=== PATIENT | female | born 1940 | race Caucasian/White ===

== ENCOUNTER 2017-01-02 07:27 | Inpatient (IN) | payer MEDICARE ==
[2017-01-02] MEDS ORDERED: Lidocaine 2% Inj (20ml) ONE ×2 (09:20→10:06)
[2017-01-02] MEDS ORDERED: Midazolam 2 MG/2 ML VIAL ONE (09:29)
[2017-01-02] MEDS ORDERED: Metoprolol 1 mg/ml Inj IVP ONE (09:43)
[2017-01-02] MEDS ORDERED: Propofol 10 mg/ml Inj (20 ML) ONE (10:06)
--- NOTE | 2017-01-02 10:17 | CP.SDSHP ---
Same Day Surgery H & P - History Proposed Procedure: Left percutaneous nephrostomy tube placement Pre-Op Diagnosis: Left renal calculi - Allergies Allergies: Allergies No Known Allergies Allergy (Verified 12/26/16 08:57) - Physical Exam Vital Signs: Vital Signs 01/02/17 07:47 Temperature 97.4 F L Pulse Rate 69 Respiratory 20 Rate Blood Pressure 143/76 O2 Sat by Pulse 96 Oximetry Mental Status: Alert & Oriented x3 Neuro: WNL Heart: WNL Lungs: WNL - Impression Impression: Pt with staghorn calculus left kidney with plan OR lithotripsy. Plan percutaneous nephrostomy tube placement. Informed consent obtained. Pt. Evaluated Today:Candidate for Anesthesia & Procedure: Yes (ASA 2 Malampati 3) - Date & Time Date: 01/02/17 Time: 09:15 Short Stay Discharge - Short Stay Discharge Admitting Diagnosis/Reason for Visit: RENAL CALCULI Disposition: HOME/ ROUTINE
--- NOTE | 2017-01-02 10:20 | PCM.SURG1 ---
Surgeon's Initial Post Op Note - Surgeon's Notes Surgeon: Jose Eduardo Cabezas MD Mop Machine Operator: None Type of Anesthesia: IV Sedation Pre-Operative Diagnosis: Left renal calculus Operative Findings: XRAY image showed lower pole and renal pelvis stone. Ureteral stent in place. Post-Operative Diagnosis: Left renal calculi Operation Performed: Left perc. nephrostomy tube placement. Specimen/Specimens Removed: none Estimated Blood Loss: EBL {In ML}: 2 Blood Products Given: N/A Drains Used: No Drains Post-Op Condition: Fair Date of Surgery/Procedure: 01/02/17 Time of Surgery/Procedure: 15:00
[2017-01-02] MEDS ORDERED: Sodium Chloride 0.9% 500 ML IV ONE (11:30)
--- NOTE | 2017-01-02 12:04 | SPECPROC ---
PROCEDURE: < Date of procedure: 01/02/2017 Procedure: 1. Left nephrostogram, CPT 16883 2. Left percutaneous nephrostomy tube placement, CPT 41829 Medications: The patient sedated by the anesthesiologist along with physiologic monitoring, 8 cubic centimeters 1 percent lidocaine. HISTORY: Ureteral obstruction, ureteral calculi TECHNIQUE: Following informed consent and procedure time-out, the patient was placed prone on the interventional table and the skin was marked. The left lower back were prepped and draped in the usual sterile fashion. Ultrasound showed a small stone in the lower pole left kidney. A ureteral stent is in place. After the patient was sedated by the anesthesiologist and the lower back anesthetized with 8 cc 1% lidocaine, a 21 gauge Chiba needle was advanced percutaneously under direct ultrasound guidance into the lower pole and directed towards the stone. The position of needle was confirmed with fluoroscopic image. Dilute contrast injected through the needle outlined the collecting system which is filled with stones. An 018 guidewire was advanced through the needle into the upper collecting system. Needle was exchanged for an Accustick coaxial dilator. The dilator was exchanged over the 035 wire for a 7 Beninese vascular sheath. Through the sheath, a Berenstein catheter was advanced into renal collecting system and a guidewire was advanced into the bladder. Nephrostogram showed no hydronephrosis. There is flow of contrast seen into the urinary bladder. An 8 Beninese nephrostomy tube was advanced over the wire and into the mid ureter. Position of the tube was confirmed with contrast injection. The tube was secured to patient's skin. The nephrostomy tube was attached to drainage bag. IMPRESSION: Significant calculi within the left renal collecting system extending from the lower pole to the renal pelvis. There is no hydronephrosis. A ureteral stent in place. An 8 Beninese nephrostomy tube was was advanced to the mid ureter for planned lithotripsy.
[2017-01-02 12:19] LABS: HEMATOCRIT 42.8 % (34.0-47.0); MEAN CELL VOLUME 88.9 fL (81.0-99.0); MEAN CORPUSCULAR HGB CONC 32.7 g/dL (33.0-37.0); MEAN PLATELET VOLUME 10.2 fL (7.2-11.7); WHITE BLOOD COUNT 8.7 K/uL (4.8-10.8)
[2017-01-02 12:30] LABS: POTASSIUM 4.6 mmol/L (3.6-5.2)
[2017-01-02 12:32] LABS: ALB/GLOB RATIO 1.3 (1.0-2.1); BILIRUBIN,TOTAL 0.5 mg/dL (0.2-1.3); TOTAL PROTEIN 7.6 g/dL (6.3-8.3)
[2017-01-02 12:33] LABS: CALCIUM 9.4 mg/dl (8.6-10.4)
[2017-01-02] MEDS ORDERED: (Novolog) Insulin Aspart, Recombinant 100 u/ml 10 ml vial SC SCH (16:30)
--- NOTE | 2017-01-02 17:47 | CP.PCM.HP ---
History of Present Illness - History of Present Illness History of Present Illness: HPI: 76 year old female h/o kidney stones, s/p left ureteral insertion for OR lithothripsy. Feels maya. C/o mild left flank pains. Present on Admission - Present on Admission Any Indicators Present on Admission: Yes History of DVT/PE: No History of Uncontrolled Diabetes: No Urinary Catheter: No Decubitus Ulcer Present: No Review of Systems - Review of Systems All systems: reviewed and no additional remarkable complaints except (flank pains, no fever, no sob, no chestpain, no loss of weight) Past Patient History - Tetanus Immunizations Tetanus Immunization: Up to Date - Past Medical History & Family History Past Medical History?: Yes - Past Social History Smoking Status: Never Smoked Domestic Violence: Negative - CARDIAC Hx Cardiac Disorders: Yes Hx Hypercholesterolemia: Yes Hx Hypertension: Yes - PULMONARY Hx Respiratory Disorders: No - NEUROLOGICAL Hx Neurological Disorder: No - HEENT Hx HEENT Problems: Yes Hx Cataracts: Yes (bilat iol) - RENAL Hx Chronic Kidney Disease: Yes Hx Kidney Stones: Yes - ENDOCRINE/METABOLIC Hx Endocrine Disorders: Yes Hx Diabetes Mellitus Type 2: Yes - HEMATOLOGICAL/ONCOLOGICAL Hx Blood Disorders: Yes Hx Cancer: Yes (breast 2002) Hx Chemotherapy: Yes (2002) - INTEGUMENTARY Hx Dermatological Problems: No - MUSCULOSKELETAL/RHEUMATOLOGICAL Hx Musculoskeletal Disorders: Yes Hx Falls: No Hx Osteoarthritis: Yes (knees) - GASTROINTESTINAL Hx Gastrointestinal Disorders: Yes Hx Diverticulitis: Yes (diverticuli) Hx Gall Bladder Disease: Yes - GENITOURINARY/GYNECOLOGICAL Hx Genitourinary Disorders: Yes Hx Hematuria: Yes - PSYCHIATRIC Hx Psychophysiologic Disorder: No - SURGICAL HISTORY Hx Surgeries: Yes Hx Cataract Extraction: Yes Hx Cholecystectomy: Yes Hx Mastectomy: Yes (left) Other/Comment: Nephrostomy 01/02/17 - ANESTHESIA Hx Anesthesia: Yes Hx Anesthesia Reactions: No Hx Malignant Hyperthermia: No Has any member of the family had a problem w/ anesthesia?: No Meds Allergies/Adverse Reactions: Allergies Allergy/AdvReac Type Severity Reaction Status Date / Time No Known Allergies Allergy Verified 12/26/16 08:57 Physical Exam - Head Exam Head Exam: NORMAL INSPECTION - Eye Exam Eye Exam: Normal appearance - ENT Exam ENT Exam: Normal Exam - Neck Exam Neck exam: Positive for: Normal Inspection - Respiratory Exam Respiratory Exam: NORMAL BREATHING PATTERN - Cardiovascular Exam Cardiovascular Exam: REGULAR RHYTHM - GI/Abdominal Exam GI & Abdominal Exam: Soft (left nephrostomy tube noted) - Rectal Exam Rectal Exam: Deferred - Extremities Exam Extremities exam: Positive for: normal inspection - Back Exam Back exam: NORMAL INSPECTION - Neurological Exam Neurological exam: Alert - Psychiatric Exam Psychiatric exam: Normal Affect - Skin Skin Exam: Warm Results - Vital Signs Recent Vital Signs: Last Vital Signs Temp 98.2 F 01/02/17 15:20 Pulse 62 01/02/17 15:20 Resp 18 01/02/17 15:20 BP 126/51 L 01/02/17 15:20 Pulse Ox 97 01/02/17 15:20 - Labs Result Diagrams: 01/02/17 12:15 01/02/17 12:15 Labs: Laboratory Results - last 24 hr 01/02/17 01/02/17 01/02/17 08:04 12:08 12:15 WBC 8.7 RBC 4.81 Hgb 14.0 Hct 42.8 MCV 88.9 MCH 29.0 MCHC 32.7 L RDW 14.0 Plt Count 224 MPV 10.2 Sodium Potassium Chloride Carbon Dioxide Anion Gap BUN Creatinine Est GFR ( Amer) Est GFR (Non-Af Amer) POC Glucose (mg/dL) 162 H 156 H Random Glucose Calcium Total Bilirubin AST ALT Alkaline Phosphatase Total Protein Albumin Globulin Albumin/Globulin Ratio 01/02/17 01/02/17 12:15 16:44 WBC RBC Hgb Hct MCV MCH MCHC RDW Plt Count MPV Sodium 141 Potassium 4.6 Chloride 106 Carbon Dioxide 21 L Anion Gap 19 BUN 25 H Creatinine 1.2 Est GFR ( Amer) 53 Est GFR (Non-Af Amer) 44 POC Glucose (mg/dL) 142 H Random Glucose 143 H Calcium 9.4 Total Bilirubin 0.5 AST 37 H ALT 45 Alkaline Phosphatase 56 Total Protein 7.6 Albumin 4.3 Globulin 3.3 Albumin/Globulin Ratio 1.3 Assessment & Plan (1) Kidney stone on left side Status: Acute Priority: High (2) Diabetes Status: Chronic Priority: Medium - Assessment and Plan (Free Text) Assessment: For lithotripsy. IV antibiotic, SC insuline Cleared for OR lithotripsy
[2017-01-02] MEDS ORDERED: Gentamicin 160 MG in Sodium Chloride 0.9% 100 ML IVPB ONE (18:00)
[2017-01-02] MEDS: (Novolog) Insulin Aspart, Recombinant 100 u/ml 10 ml vial SC SCH (23:38)
[2017-01-03] MEDS ORDERED: Bupivacaine 0.5% Inj(30mL) ONE (07:42)
[2017-01-03] MEDS ORDERED: cefTRIAXone IV 1 gm in Dextros 50 ML IVPB ONE (07:42)
[2017-01-03] MEDS ORDERED: Iodixanol 320 MG/ML 200 ML BOTTLE IV ONE (07:42)
[2017-01-03] MEDS: (Novolog) Insulin Aspart, Recombinant 100 u/ml 10 ml vial SC SCH ×4 (07:47→21:41)
[2017-01-03] MEDS ORDERED: Gentamicin 80 mg in 0.9% NS 0 MG/0 ML BAG IVPB ONE (07:58)
[2017-01-03] MEDS ORDERED: Lactated Ringer's 1,000 ML IV ONE ×2 (08:20→09:30)
[2017-01-03] MEDS ORDERED: Propofol 10 mg/ml Inj (20 ML) ONE (08:22)
[2017-01-03] MEDS ORDERED: Midazolam 2 MG/2 ML VIAL ONE (08:22)
[2017-01-03] MEDS ORDERED: Neostigmine Methylsulfate 3mg/3ml Syringe IV ONE (09:46)
[2017-01-03] MEDS ORDERED: Home Med 1 UNIT (Empagliflozin [Jardiance] 25 MG) PO SCH (10:00)
--- NOTE | 2017-01-03 10:12 | CP.PCM.CON ---
History of Present Illness - History of Present Illness History of Present Illness: FULL NOTE TO BE DICTATED Past Patient History - Tetanus Immunizations Tetanus Immunization: Up to Date - Past Medical History & Family History Past Medical History?: Yes - Past Social History Smoking Status: Never Smoked Domestic Violence: Negative - CARDIAC Hx Cardiac Disorders: Yes Hx Hypercholesterolemia: Yes Hx Hypertension: Yes - PULMONARY Hx Respiratory Disorders: No - NEUROLOGICAL Hx Neurological Disorder: No - HEENT Hx HEENT Problems: Yes Hx Cataracts: Yes (bilat iol) - RENAL Hx Chronic Kidney Disease: Yes Hx Kidney Stones: Yes - ENDOCRINE/METABOLIC Hx Endocrine Disorders: Yes Hx Diabetes Mellitus Type 2: Yes - HEMATOLOGICAL/ONCOLOGICAL Hx Blood Disorders: Yes Hx Cancer: Yes (breast 2002) Hx Chemotherapy: Yes (2002) - INTEGUMENTARY Hx Dermatological Problems: No - MUSCULOSKELETAL/RHEUMATOLOGICAL Hx Musculoskeletal Disorders: Yes Hx Falls: No Hx Osteoarthritis: Yes (knees) - GASTROINTESTINAL Hx Gastrointestinal Disorders: Yes Hx Diverticulitis: Yes (diverticuli) Hx Gall Bladder Disease: Yes - GENITOURINARY/GYNECOLOGICAL Hx Genitourinary Disorders: Yes Hx Hematuria: Yes - PSYCHIATRIC Hx Psychophysiologic Disorder: No - SURGICAL HISTORY Hx Surgeries: Yes Hx Cataract Extraction: Yes Hx Cholecystectomy: Yes Hx Mastectomy: Yes (left) Other/Comment: Nephrostomy 01/02/17 - ANESTHESIA Hx Anesthesia: Yes Hx Anesthesia Reactions: No Hx Malignant Hyperthermia: No Has any member of the family had a problem w/ anesthesia?: No Meds Allergies/Adverse Reactions: Allergies Allergy/AdvReac Type Severity Reaction Status Date / Time No Known Allergies Allergy Verified 12/26/16 08:57 - Medications Medications: Current Medications Amlodipine Besylate (Norvasc) 5 mg PO DAILY [facility] Last Admin: 01/03/17 09:48 Dose: Not Given Insulin Aspart (Novolog) 0 unit SC [facility] PRN Reason: Protocol Last Admin: 01/03/17 07:47 Dose: Not Given Losartan Potassium (Cozaar) 50 mg PO DAILY [facility] Last Admin: 01/03/17 07:35 Dose: 50 mg Metoprolol Tartrate (Lopressor) 25 mg PO BID [facility] Last Admin: 01/03/17 07:34 Dose: 25 mg Pneumococcal Polyvalent Vaccine (Pneumovax 23 Vaccine) 0.5 ml IM .ONCE ONE Stop: 01/04/17 10:01 Rosuvastatin Calcium (Crestor) 10 mg PO [facility] Last Admin: 01/02/17 22:18 Dose: 10 mg Results - Vital Signs Recent Vital Signs: Last Vital Signs Temp 98.1 F 01/03/17 07:00 Pulse 76 01/03/17 07:00 Resp 20 01/03/17 07:00 BP 121/62 01/03/17 07:34 Pulse Ox 96 01/02/17 23:45 - Labs Result Diagrams: 01/02/17 12:15 01/02/17 12:15 Labs: Laboratory Results - last 24 hr 01/02/17 01/02/17 01/02/17 12:08 12:15 12:15 WBC 8.7 RBC 4.81 Hgb 14.0 Hct 42.8 MCV 88.9 MCH 29.0 MCHC 32.7 L RDW 14.0 Plt Count 224 MPV 10.2 Sodium 141 Potassium 4.6 Chloride 106 Carbon Dioxide 21 L Anion Gap 19 BUN 25 H Creatinine 1.2 Est GFR ( Amer) 53 Est GFR (Non-Af Amer) 44 POC Glucose (mg/dL) 156 H Random Glucose 143 H Calcium 9.4 Total Bilirubin 0.5 AST 37 H ALT 45 Alkaline Phosphatase 56 Total Protein 7.6 Albumin 4.3 Globulin 3.3 Albumin/Globulin Ratio 1.3 Blood Type Antibody Screen 01/02/17 01/02/17 01/02/17 16:44 19:49 21:10 WBC RBC Hgb Hct MCV MCH MCHC RDW Plt Count MPV Sodium Potassium Chloride Carbon Dioxide Anion Gap BUN Creatinine Est GFR ( Amer) Est GFR (Non-Af Amer) POC Glucose (mg/dL) 142 H 229 H Random Glucose Calcium Total Bilirubin AST ALT Alkaline Phosphatase Total Protein Albumin Globulin Albumin/Globulin Ratio Blood Type B POSITIVE Antibody Screen Negative 01/03/17 06:41 WBC RBC Hgb Hct MCV MCH MCHC RDW Plt Count MPV Sodium Potassium Chloride Carbon Dioxide Anion Gap BUN Creatinine Est GFR ( Amer) Est GFR (Non-Af Amer) POC Glucose (mg/dL) 166 H Random Glucose Calcium Total Bilirubin AST ALT Alkaline Phosphatase Total Protein Albumin Globulin Albumin/Globulin Ratio Blood Type Antibody Screen Assessment & Plan - Assessment and Plan (Free Text) Assessment: imp: L renal calculi Hx of uti DM Hypertension Hx of breast ca - Date & Time Date: 01/02/17 Time: 10:30
[2017-01-03] MEDS ORDERED: Oxycodone/Acetaminophen 5/325 mg Tab PO PRN (10:17)
--- NOTE | 2017-01-03 10:17 | PCM.SURG1 ---
Surgeon's Initial Post Op Note - Surgeon's Notes Surgeon: Connor Bhakta Riverboat Captain: none Type of Anesthesia: General Endo Pre-Operative Diagnosis: L renal calculi Operative Findings: same, inflamatory debris in kidney Post-Operative Diagnosis: same Operation Performed: L percutaneous nephrolithotomy. Ultrasonic lithotripsy. Stent removal. Nephrostogram Specimen/Specimens Removed: stones, urine, renal pelvic tissue Estimated Blood Loss: EBL {In ML}: 100 Blood Products Given: N/A Post-Op Condition: Good Date of Surgery/Procedure: 01/03/17 Time of Surgery/Procedure: 10:00
[2017-01-03] MEDS ORDERED: HYDROmorphone 0.5 mg/0.5 ml ISec IVP PRN (10:20)
[2017-01-03] MEDS: Lactated Ringer's 1,000 ML IV SCH ×2 (10:30→22:26)
[2017-01-03 12:45] VITALS: RESP 20
--- NOTE | 2017-01-03 15:21 | RAD ---
PROCEDURE: HISTORY: Study for left percutaneous nephrostomy. History of left renal calculi COMPARISON: TECHNIQUE: Total fluoroscopic time utilized during the procedure: 199 seconds. Total dose 32 point 0 5 mGy cm squared FINDINGS: Submitted images from the current procedure: 9 Please refer to the physician's notes performing the procedure. IMPRESSION: Less than 1 hour fluoroscopic time utilized during performance of the procedure
--- NOTE | 2017-01-03 18:06 | CP.PCM.PN ---
Subjective - Date & Time of Evaluation Date of Evaluation: 01/03/17 Time of Evaluation: 18:03 - Subjective Subjective: S: Feels maya. No fever. S/p lithotripsy, s/p stent removed, s/p left percutaneous nephrlithotomy 01-03-17. Objective - Vital Signs/Intake and Output Vital Signs (last 24 hours): Temp Pulse Resp BP Pulse Ox 98.2 F 87 20 125/57 L 94 L 01/03/17 16:22 01/03/17 16:22 01/03/17 16:22 01/03/17 16:22 01/03/17 16:22 Intake and Output: 01/03/17 01/03/17 06:59 18:59 Intake Total 420 Output Total 765 Balance -345 - Medications Medications: Current Medications Amlodipine Besylate (Norvasc) 5 mg PO DAILY [facility] Last Admin: 01/03/17 09:48 Dose: Not Given Docusate Sodium (Colace) 100 mg PO TID [facility] Ceftriaxone Sodium (Rocephin Iv 1 Gm Duplex) 50 mls @ 100 mls/hr IVPB DAILY [facility] Lactated Ringer's (Lactated Ringer's) 1,000 mls @ 80 mls/hr IV .[id number] [facility] Last Admin: 01/03/17 10:30 Dose: Not Given Insulin Aspart (Novolog) 0 unit SC ACHS [facility] PRN Reason: Protocol Last Admin: 01/03/17 11:45 Dose: 3 unit Losartan Potassium (Cozaar) 50 mg PO DAILY [facility] Last Admin: 01/03/17 07:35 Dose: 50 mg Metoprolol Tartrate (Lopressor) 25 mg PO BID [facility] Last Admin: 01/03/17 07:34 Dose: 25 mg Oxycodone/Acetaminophen (Percocet 5/325 Mg Tab) 1 tab PO Q4H PRN PRN Reason: Pain, moderate (4-7) Stop: 01/06/17 10:18 Pneumococcal Polyvalent Vaccine (Pneumovax 23 Vaccine) 0.5 ml IM .ONCE ONE Stop: 01/04/17 10:01 Rosuvastatin Calcium (Crestor) 10 mg PO HS [facility] Last Admin: 01/02/17 22:18 Dose: 10 mg - Labs Labs: 01/02/17 12:15 01/02/17 12:15 - Constitutional Appears: No Acute Distress - Head Exam Head Exam: NORMOCEPHALIC - Eye Exam Eye Exam: Normal appearance - ENT Exam ENT Exam: Normal Exam - Neck Exam Neck Exam: Normal Inspection - Respiratory Exam Respiratory Exam: NORMAL BREATHING PATTERN - Cardiovascular Exam Cardiovascular Exam: REGULAR RHYTHM - GI/Abdominal Exam GI & Abdominal Exam: Soft - Rectal Exam Rectal Exam: Deferred - Extremities Exam Extremities Exam: Normal Inspection - Back Exam Back Exam: NORMAL INSPECTION (left percutaneous nephrolithotomy tube, dunham catheter tube noted) - Neurological Exam Neurological Exam: Awake Assessment and Plan (1) Kidney stone on left side Assessment & Plan: S/p tithotripsy, s/p stent removal, s/p left percutaneus nephrolithotomy done . Appreciate Dr. Bhakta notes. Continue IV antibiotic and insuline Status: Acute (2) Diabetes Status: Chronic - Assessment and Plan (Free Text) Assessment: Continue insuline
[2017-01-04 08:21] LABS: HEMATOCRIT 39.9 % (34.0-47.0); MEAN CELL VOLUME 88.2 fL (81.0-99.0); MEAN CORPUSCULAR HEMOGLOBIN 29.1 pg (27.0-31.0); RED CELL DISTRIBUTION WIDTH 13.8 % (11.5-14.5)
[2017-01-04 08:27] LABS: WHITE BLOOD COUNT 17.8 K/uL (4.8-10.8)
[2017-01-04 08:34] LABS: CHLORIDE 96 mmol/L (98-107)
[2017-01-04 08:35] LABS: POTASSIUM 4.2 mmol/L (3.6-5.2); SODIUM 137 mmol/L (132-148)
[2017-01-04 08:37] LABS: GFR AFRICAN-AMERICAN > 60
[2017-01-04 08:38] LABS: BLOOD UREA NITROGEN 17 mg/dL (7-17); CALCIUM 9.5 mg/dl (8.6-10.4); CARBON DIOXIDE 24 mmol/L (22-30); GLUCOSE,RANDOM 166 mg/dL (65-105)
--- NOTE | 2017-01-04 08:43 | CP.PCM.PN ---
Subjective - Date & Time of Evaluation Date of Evaluation: 01/04/17 Time of Evaluation: 08:25 - Subjective Subjective: Patient no complain of pain; Had L flank pain but feels much better today. No CP, no SOB, no cough. Good appetite this AM, no n/v, no diarrhea Urin still bloody. Objective - Vital Signs/Intake and Output Vital Signs (last 24 hours): Temp Pulse Resp BP Pulse Ox 98.4 F 82 20 116/62 92 L 01/04/17 07:59 01/04/17 07:59 01/04/17 07:59 01/04/17 07:59 01/04/17 07:59 Intake and Output: 01/04/17 01/04/17 06:59 18:59 Intake Total 640 Output Total 2700 Balance -2059 - Medications Medications: Current Medications Amlodipine Besylate (Norvasc) 5 mg PO DAILY [facility] Last Admin: 01/03/17 09:48 Dose: Not Given Docusate Sodium (Colace) 100 mg PO TID [facility] Last Admin: 01/03/17 18:29 Dose: Not Given Ceftriaxone Sodium (Rocephin Iv 1 Gm Duplex) 50 mls @ 100 mls/hr IVPB DAILY [facility] Lactated Ringer's (Lactated Ringer's) 1,000 mls @ 80 mls/hr IV .[id number] [facility] Last Admin: 01/03/17 22:26 Dose: 80 mls/hr Insulin Aspart (Novolog) 0 unit SC ACHS [facility] PRN Reason: Protocol Last Admin: 01/03/17 21:41 Dose: Not Given Losartan Potassium (Cozaar) 50 mg PO DAILY [facility] Last Admin: 01/03/17 07:35 Dose: 50 mg Metoprolol Tartrate (Lopressor) 25 mg PO BID [facility] Last Admin: 01/03/17 18:23 Dose: 25 mg Oxycodone/Acetaminophen (Percocet 5/325 Mg Tab) 1 tab PO Q4H PRN PRN Reason: Pain, moderate (4-7) Stop: 01/06/17 10:18 Pneumococcal Polyvalent Vaccine (Pneumovax 23 Vaccine) 0.5 ml IM .ONCE ONE Stop: 01/04/17 10:01 Rosuvastatin Calcium (Crestor) 10 mg PO [facility] Last Admin: 01/03/17 22:25 Dose: 10 mg - Labs Labs: 01/04/17 08:12 01/02/17 12:15 - Constitutional Appears: No Acute Distress - Eye Exam Eye Exam: Normal appearance - ENT Exam ENT Exam: Mucous Membranes Moist - Neck Exam Neck Exam: Full ROM. absent: Lymphadenopathy, Thyromegaly - Respiratory Exam Respiratory Exam: Clear to Ausculation Bilateral. absent: Decreased Breath Sounds, Rales, Rhonchi, Wheezes - Cardiovascular Exam Cardiovascular Exam: REGULAR RHYTHM, +S1, +S2. absent: Gallop, JVD, Murmur - GI/Abdominal Exam GI & Abdominal Exam: Soft. absent: Tenderness, Mass - Extremities Exam Extremities Exam: Full ROM, Normal Capillary Refill. absent: Calf Tenderness, Joint Swelling, Pedal Edema Assessment and Plan - Assessment and Plan (Free Text) Assessment: s/p Lithotripsy; NIDDM, HTN, Hyperlipidemia Cont meds, Discharge if okay w/ Dr Bhakta Inc fluid and encourage to ambulate
[2017-01-04] MEDS: (Novolog) Insulin Aspart, Recombinant 100 u/ml 10 ml vial SC SCH ×2 (08:56→13:16)
[2017-01-04] MEDS ORDERED: cefTRIAXone IV 1 gm in Dextros 50 ML IVPB SCH (10:00)
[2017-01-04] MEDS ORDERED: Pneumococcal 23-Valent Vaccine IM ONE (10:00)
[2017-01-04 16:14] VITALS: BP 111/59; PULSE 75; TEMP 98; O2SAT 94
--- NOTE | 2017-01-04 17:03 | RAD ---
HISTORY: Nephrostomy tube COMPARISON: No prior. FINDINGS: BOWEL: Normal. No obstruction. No free air. BONES: Normal. OTHER FINDINGS: Nephro ureterostomy catheter is in satisfactory position on the left. IMPRESSION: Satisfactory position of nephrostomy, ureterostomy catheter is on the left.
--- NOTE | 2017-01-04 23:45 | PCM.URO ---
Urology Progress Note - General General: No Complaints, Tolerating Diet - Subjective Abdominal Pain: No Flank Pain: No Nausea: No Vomiting: No Voiding Well: Yes (dunham removed this am) Hematuria: Yes (mild via L NT) Urinary Urgency: No Frequency: No Good Stream: Yes Stone Passed: No Dsypnea: No Chest Pain: No Fever & Chills: No - Objective Lab Studies: Reviewed (leukocytosis) Lab Results Last 24 Hours: Laboratory Results - last 24 hr 01/04/17 01/04/17 01/04/17 06:27 08:12 08:12 WBC 17.8 H D RBC 4.52 Hgb 13.2 Hct 39.9 MCV 88.2 MCH 29.1 MCHC 33.0 RDW 13.8 Plt Count 210 MPV 10.0 Sodium 137 Potassium 4.2 Chloride 96 L Carbon Dioxide 24 Anion Gap 21 H BUN 17 Creatinine 1.0 Est GFR ( Amer) > 60 Est GFR (Non-Af Amer) 54 POC Glucose (mg/dL) 190 H Random Glucose 166 H Calcium 9.5 01/04/17 11:30 WBC RBC Hgb Hct MCV MCH MCHC RDW Plt Count MPV Sodium Potassium Chloride Carbon Dioxide Anion Gap BUN Creatinine Est GFR ( Amer) Est GFR (Non-Af Amer) POC Glucose (mg/dL) 221 H Random Glucose Calcium Intake & Output: Intake & Output 01/04/17 01/04/17 01/05/17 06:59 18:59 06:59 Intake Total 640 1170 Output Total 2700 1000 Balance -2060 170 Intake: Intake, IV Amount 640 320 Left Forearm 640 320 Oral 850 Output: Drainage 450 300 Left Lateral Back 450 300 Urine 2250 700 Urethral (Dunham) 2250 700 Other: # Voids Urethral (Dunham) 3 # Bowel Movements 0 Vital Signs: Vital Signs - 24 hr 01/04/17 01/04/17 01/04/17 07:59 11:20 16:13 Temperature 98.4 F 98.0 F Pulse Rate 82 85 75 Respiratory 20 20 Rate Blood Pressure 116/62 122/67 111/59 L O2 Sat by Pulse 92 L 94 L Oximetry - Physical Exam Abdominal Exam: Soft, Non-Tender, Non-Distended Bowel Sounds: Normal Back: No CVA Tenderness Urinary Catheter Draining Well: Yes (NT - light pink urine) Extremities: Normal: Bilateral - Plan Catheter Care: Yes (L NT care) Ambulation - Out of Bed: Yes Discontinue Intravenous Fluids: Yes Intake & Output: Yes See Orders: Yes - Date & Time of Note Date: 01/04/17 Time: 09:45
--- NOTE | 2017-01-05 14:22 | OP ---
DATE: 01/03/2017 UROLOGY OPERATIVE REPORT PREOPERATIVE DIAGNOSES: 1. Right renal calculus. 2. Right hydronephrosis. POSTOPERATIVE DIAGNOSES: 1. Right renal calculus. 2. Right hydronephrosis. PROCEDURES: 1. Left percutaneous nephrolithotomy. 2. Ultrasonic lithotripsy. 3. Left nephrostogram. OPERATING SURGEON: Glenny Bhakta MD DESCRIPTION OF PROCEDURE: General anesthesia was administered via endotracheal tube. The patient had a Briones catheter placed per urethra. The patient was then placed in the prone position. The left flank was prepped and draped in sterile fashion. The procedure was performed under fluoroscopic control with C-arm as well as video endoscopic control. A 0.035-inch guidewire was inserted through the nephroureteral catheter. The guidewire was passed under fluoroscopic control down to the bladder. The guidewire exited from the bladder per urethra to outside the bladder. Dilation of the nephrostomy tract was performed as follows. Skin incision was made approximately 1.5 cm in length. Dilation was performed using the flexible fascial dilator starting from size 6-Stateless to 10-Stateless. Thereafter, a 10-Stateless ureteral catheter followed by a coaxial 12-Stateless sheath was passed. Through the 12-Stateless sheath, a second guidewire, Amplatz Super-Stiff guidewire was passed down the ureter to the bladder where it coiled well within the bladder. The nephrostomy tract was further dilated using the balloon dilation catheter. The catheter was placed under fluoroscopic control. Dilation was performed up to size 30-Stateless. Thereafter, the 34-Stateless Amplatz sheath was inserted over the balloon. Nephrostomy was performed through the Amplatz sheath. The 0-degree right angle offset lens nephroscope were placed under direct vision into the kidney. Diagnostic nephrostomy is performed. There were noted to be multiple stones within the renal pelvis at the ureteropelvic junction. Stones were also noted to be located within the lower pole collecting system. There was a large amount of inflammatory debris. Some of this debris was removed using ultrasonic lithotriptor. Stones were removed using ultrasonic lithotriptor. The stone fragmented well on the setting. Some of the debris within the bladder was grasped with rigid grasping forceps and sent as a pathologic specimen. The upper pole was inspected as well. Multiple stones were noted adjacent to the stent. These were removed using ultrasonic lithotriptor. The stent was grasped with rigid grasping forceps and removed intact. Further nephrostomy of the renal pelvis, lower pole revealed no further stones under endoscopic control. The nephroscope was removed. A 24-Stateless reentry [place]ot nephrostomy tube was inserted over the working wire. Proper position of the nephrostomy tube was confirmed with nephrostogram. The Amplatz sheath was removed. The nephrostomy tube was secured to the skin. Marcaine 0.5% was infiltrated for postoperative analgesia. A sterile dressing was applied. The nephrostomy tube was connected to straight drainage. There was [id number] bleeding noted during the procedure. The urine in the nephrostomy tube was light pink. The sterile dressing was applied. The patient tolerated the procedure without complication. The patient was transferred to recovery room in satisfactory condition. Glenny Bhakta MD
[2017-01-05 18:42] LABS: STONE SOURCE Left Kidney
== END 2017-01-04 16:37 | disposition home or self-care (01) | DRG 694 ==
LOC: C.SPRAD 07:27 → C.9S 08:54 → C.5S 14:45
PROVIDERS: ADMIT Internal Medicine; ATTEND Internal Medicine
PROC: BT12YZZ Fluoroscopy of Left Kidney using Other Contrast (ICD-10-PCS; 2017-01-02)
PROC: 0T9130Z Drainage of Left Kidney with Drainage Device, Percutaneous Approach (ICD-10-PCS; principal; 2017-01-02 09:00)
DX: N20.0 Calculus of kidney (principal); E11.22 Type 2 diabetes mellitus with diabetic chronic kidney disease; E78.00 Pure hypercholesterolemia, unspecified; N18.9 Chronic kidney disease, unspecified; I12.9 Hypertensive chronic kidney disease with stage 1 through stage 4 chronic kidney disease, or unspecified chronic kidney disease; M17.0 Bilateral primary osteoarthritis of knee; Z85.3 Personal history of malignant neoplasm of breast; Z79.4 Long term (current) use of insulin